=== PATIENT | male | born 1960 | race Hispanic/Latino ===

== ENCOUNTER 2018-07-15 21:40 | Inpatient (IN) | payer OTHER ==
[2018-07-15] MEDS ORDERED: Ondansetron PF 4 MG/2 ML Vial ONE (21:59)
[2018-07-15] MEDS ORDERED: Morphine 4 MG/ML VIAL ONE (21:59)
[2018-07-15] MEDS ORDERED: Ondansetron ODT 4 MG TAB SL PRN (22:58)
[2018-07-15] MEDS ORDERED: Ondansetron PF 4 MG/2 ML Vial IVP PRN (22:58)
[2018-07-15] MEDS ORDERED: Morphine 4 MG/ML VIAL SLOW IVP PRN (22:58)
[2018-07-15] MEDS: Sodium Chloride 0.9% 1,000 ML IV SCH (23:00)
[2018-07-15] MEDS ORDERED: Acetaminophen 650 MG Suppository PR PRN (23:09)
[2018-07-15] MEDS ORDERED: Morphine 2 MG/ML SYRINGE SLOW IVP PRN (23:11)
[2018-07-15 23:15] VITALS: BMI 47.3
[2018-07-16] MEDS ORDERED: Acetaminophen 650 MG in Premix Bag 1 BAG IVPB SCH (00:45)
[2018-07-16] MEDS ORDERED: Dextrose 5% in Water 1,000 ML IV PRN (01:06)
[2018-07-16] MEDS ORDERED: Dextrose 50% Abboject 50 ML SYRINGE SLOW IVP PRN (01:06)
[2018-07-16] MEDS ORDERED: HumaLOG 300 UNITS/3 ML VIAL SC PRN (01:06)
--- NOTE | 2018-07-16 03:35 | HP ---
CODE STATUS: Full code. TIME OF EVALUATION: 10:30 p.m. CHIEF COMPLAINT: Abdominal pain. HISTORY OF PRESENT ILLNESS: A 57 years old male patient transferred from [place]. The patient came to the hospital after having abdominal pain associated with nausea and then abdominal distention. The pain was severe with no clear triggers, no alleviating factors, was a cramp like pain. The symptoms started around 9:00 a.m. The symptoms have been gradually worsened. The patient was placed on NG tubes and given some pain medication. CT abdomen showed some small bowel obstruction. We will place the patient on medical treatment with intermittent low-pressure wall suction. We will monitor him. We will do KUB in the morning. If not improving, might need a surgery to help us with outpatient. REVIEW OF SYSTEMS: CONSTITUTIONAL: No fever, chills or generalized weakness. RESPIRATORY: No cough, sputum, no shortness of breath. CARDIOVASCULAR: No chest pain or palpitations. GASTROINTESTINAL: The patient had nausea, vomiting, abdominal pain and abdominal distention. 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 GENITOURINARY: No burning on urination. EXTREMITIES: No leg swelling. All other systems were reviewed and negative except for the findings mentioned above. PAST MEDICAL HISTORY: The patient has a history of diabetes type 2, hypertension, high cholesterol, colon cancer. PAST SURGICAL HISTORY: Colectomy in 2013. PSYCHIATRIC HISTORY: No previous psych history. SOCIAL HISTORY: The patient drinks everyday, more than 10 drinks per day. No drug use. No smoking history. FAMILY HISTORY: Mother with diabetes. Father unknown. KNOWN ALLERGIES: No known drug allergies. REPORTED MEDICATIONS: 1. Metformin. 2. Glimepiride. 3. Lisinopril. 4. Amlodipine. 5. Oseni. 6. Lovastatin. PHYSICAL EXAMINATION: VITAL SIGNS: On presentation, blood pressure 177/107 with heart rate 77, respiratory rate was 16, temperature 98.2, pain was 8/10, oxygen saturation was 98% on room air. GENERAL APPEARANCE: The patient is alert, oriented, not in acute distress. HEENT: Eyes normal conjunctivae. Moist oral mucosa. Anicteric. No JVD. RESPIRATORY: Bilateral air entry. No rales. No wheezes. Symmetric expansion. CARDIOVASCULAR: Normal rate, regular rhythm. No murmurs. No gallop. No edema. ABDOMEN: Soft, distended, tender. Normal bowel sounds. MUSCULOSKELETAL: Baseline range of motion and strength. No tenderness. SKIN : Warm, intact. No pallor. No rash. No redness. Peripheral pulses are present. Capillary refill seems to be intact. NEUROLOGIC: No evidence of any new focal weakness. Cranial nerves seems to be intact. PSYCHIATRIC: The patient has good mood. No anxiety. Optimal judgment. IMAGING: Abdomen and pelvis CT, the patient had small bowel obstruction, which is probably secondary to adhesions in the small bowel at the level of the anterior abdominal wall. There is a small fat containing periumbilical hernia as well as small fat containing anterior abdominal wall hernia at the level of the umbilicus. These bowel loops do not extend significantly into the herniation, but appears to be somewhat fixed to the undersurface of the anterior wall, probably from an adhesion and resulted in a significant proximal small-bowel obstruction. Chest x-ray was reviewed. The patient has an NG tube in satisfactory location. LABORATORY DATA: Labs were reviewed. The patient has a white count of 9.4, hemoglobin 14.6, MCV 101, platelet count 162. Chemistry, potassium 3.9, sodium 134, chloride 96, carbon dioxide 23, anion gap is 19, BUN 11. GFR greater than 90, creatinine 0.8. Lactic acid was normal. Calcium 9.8. LFTs mildly elevated with AST of 67, ALT 92, alkaline phosphatase 201, albumin is 4.3. ASSESSMENT AND PLAN: The patient presented to the hospital with following medical problems. 1. Small bowel obstruction, likely secondary to adhesions. We will place the patient on medical treatment. Symptomatic treatment with pain medications, nasogastric tube to remove intraluminal pressure, surgery will be consulted, if patient not improving. We will repeat KUB in the morning and hopefully patient resolve with medical management. 2. Hyponatremia of 134. This is mild, no need for any acute intervention. The patient is receiving hydration already. 3. Uncontrolled diabetes with blood sugar of 232. Reconcile home medications. We will place the patient on sliding scale for optimal control. 4. Uncontrolled hypertension, systolic blood pressure 177, diastolic 107, reconcile home medications. Adjust treatment as needed. 5. Deep venous thrombosis prophylaxis. 6. Hyperlipidemia. Low-cholesterol diet is advised. Reconcile home medications. Job ID: [id number]
[2018-07-16] MEDS: Sodium Chloride 0.9% 1,000 ML IV SCH ×3 (05:32→16:12)
[2018-07-16 06:42] LABS: #Eosinphils 0.1 thou/uL (0.0-0.7); #Lymphocytes 1.7 thou/uL (1.20-3.40); #Monocytes 0.3 thou/uL (0.11-0.59); #Neutrophils 6.9 thou/uL (1.40-6.50); %Basophils 0.2 % (0.0-1.0); %Eosinophils 0.7 % (0.0-10.0); %Lymphocytes 18.5 % (21.0-51.0); %Monocytes 3.7 % (0.0-10.0); Hemoglobin 14.4 g/dL (14.0-18.0); Mean Corpuscular HGB CONC 34.8 g/dL (32.0-36.0); Mean Corpuscular Hemoglobin 35.8 pg (27.0-31.0); Mean Platelet Volume 9.8 fL (7.4-10.4); Platelet Count 160 thou/uL (130-400); RBC Distribution Width 12.7 % (11.5-14.5); Red Blood Cell (RBC) Count 4.01 mill/uL (4.70-6.10)
[2018-07-16 06:57] LABS: Anion Gap 13 mmol/L (10-20); BUN (Urea Nitrogen) 8 mg/dL (8.4-25.7); Calc. Creatinine Clearance 207 mL/min (70-130); Calcium 8.9 mg/dL (7.8-10.44); Carbon Dioxide 26 mmol/L (22-29); Chloride 98 mmol/L (98-107); Estimated GFR-MDRD Greater than 90; Glucose 192 mg/dL (70-105); Potassium 3.8 mmol/L (3.5-5.1); Sodium 133 mmol/L (136-145)
[2018-07-16] MEDS ORDERED: Simvastatin 5 MG TAB PO SCH ×2 (07:30→08:00)
[2018-07-16 07:53] LABS: Phosphorus 3.1 mg/dL (2.3-4.7)
--- NOTE | 2018-07-16 08:03 | RAD ---
XR Abdomen 1 View/KUB HISTORY: Abdominal pain. COMPARISON: Prior day CT examination of the abdomen. FINDINGS: There is persistent dilatation of some of the mid abdominal small bowel loops. Chain type s uture material is seen in the left mid abdomen. The degree of distention appears similar to the prior examination. There is also air within the colon. IMPRESSION: Findings suggestive of a partial small bowel obstruction. Degree of dilatation is similar to the previous CT study.
[2018-07-16] MEDS ORDERED: Enoxaparin Sodium 40 MG/0.4 ML SYRINGE SC SCH (09:00)
[2018-07-16] MEDS ORDERED: Amlodipine 10 MG TAB PO SCH (09:00)
[2018-07-16] MEDS ORDERED: Lisinopril 10 MG TAB PO SCH (09:00)
--- NOTE | 2018-07-16 10:29 | CON ---
DATE OF CONSULTATION: HISTORY OF PRESENT ILLNESS: Julius Ordaz is a 57-year-old male patient, who does maintenance work, lives in [place], presents to the emergency room with onset of central abdominal pain, nausea. He self-induced vomiting to make him feel better. He had a CAT scan of abdomen and pelvis suggesting a bowel obstruction. He had distended stomach and duodenum with a transition zone and distended proximal small bowel. He had an abdominal x-ray confirming an NG tube placement. Since having the NG tube in place, he has put out about 400 mL on the floor. Since being on the floor, he has had 1 large bowel movement and a smaller bowel movement. He states his abdomen feels normal baseline protuberance, and he does not have any pain at this time. He reports he had a similar episode a year ago after eating a taco, and on this occasion episode after eating a taco, his abdomen is periumbilical, supraumbilical, central abdominal pain and not right upper quadrant. ALLERGIES: NONE. HABITS: Tobacco none. Alcohol, none. MEDICATIONS: 1. Mevacor a.m. 2. pioglitazone daily. 3. Glimepiride b.i.d. 4. Lisinopril daily. 5. Norvasc daily. 6. Metformin b.i.d. with meals. PAST SURGICAL HISTORY: The patient had a laparoscopic converted to open right colon resection in 2012, T2, N0, M0. He had a followup colonoscopy in 2013 and again in December 2017 and was told by Dr. Lui to return in 4 years for repeat colonoscopy. PAST MEDICAL HISTORY: Morbid obesity, diabetes, hypertension, elevated cholesterol, lipids, 5 feet 6 inches, 293 pounds, 47 BMI. 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 REVIEW OF SYSTEMS: Ten-point review of systems noncontributory. PHYSICAL EXAMINATION: VITAL SIGNS: Height 5 feet 6 inches, weight 293 pounds, 47 BMI. Morbidly obese. Blood pressure 148/89, heart rate 93, respiratory rate 18. HEAD, EARS, EYES, NOSE, AND THROAT: Unremarkable. LUNGS: Clear to auscultation. CARDIAC: Rhythm. No murmur or gallop. ABDOMEN: Soft. Bowel sounds present. No obvious hernias. Midline incision without obvious hernia defect. Nontender. Good bowel sounds. EXTREMITIES: Unremarkable. LABORATORY DATA: White count 9, hemoglobin 14. Sodium 133, BUN 8, creatinine 0.76. ASSESSMENT AND PLAN: 1. History and exam consistent with a bowel obstruction, although he has greatly improved, and since he has had 2 bowel movements this morning, feels better. I would go ahead and proceed with a small bowel follow through today. Would normally wait till tomorrow, but since he has had bowel movements, we will proceed with small bowel follow-through today and await the results and hopefully we will remove the NG tube and progress his diet. 2. Morbid obesity. 3. Hypertension. 4. Diabetes. 5. History of T2, N0, M0. Laparoscopic converted to open right colectomy with followup colonoscopy in December 2017, normal. Job ID: [id number]
--- NOTE | 2018-07-16 13:06 | RAD ---
Exam: Gastrografin small bowel: HISTORY: Small bowel obstruction Patient was given Gastrografin through the NG tube. 15 minute and 1 hour overhead x-rays were perform ed. There is passage of contrast through nondilated nonobstructing small bowel entering the colon by 1 hour. There appears to be prior right hemicolectomy. IMPRESSION: No evidence for small bowel obstruction. Passage of contrast through the small bowel entering the col on by 1 hour.
[2018-07-16 16:03] VITALS: BP 123/79; TEMP 98.4
[2018-07-16] MEDS ORDERED: metFORMIN 500 MG TAB PO SCH (17:00)
[2018-07-16] MEDS ORDERED: Glimepiride 4 MG TAB PO SCH (17:00)
--- NOTE | 2018-07-16 17:11 | PRG ---
DATE OF SERVICE: 07/16/2018 SUBJECTIVE: Julius Ordaz had a small bowel follow-through, that was normal. There is no evidence of obstruction. He has had many bowel movements. Diet has been ordered. PHYSICAL EXAMINATION: ABDOMEN: Soft, baseline obesity, protuberant. Good bowel sounds. Nontender. ASSESSMENT/PLAN: No evidence of a bowel obstruction. Would resume his diabetic diet and discharge home tonight. He can follow up with me as needed. Job ID: [id number]
[2018-07-17] MEDS ORDERED: [UNRECOGNIZED DRUG - OTHER] PO SCH (09:00)
[2018-07-17] MEDS ORDERED: PIOGLITAZONE PO SCH (09:00)
--- NOTE | 2018-07-17 11:34 | DIS ---
DATE OF ADMISSION: 07/15/2018 DATE OF DISCHARGE: 07/16/2018 DISCHARGE DISPOSITION: Home. FOLLOWUP: 1. Follow up with primary care physician, Dr. Redmond, in 1 week. 2. Follow up with Dr. Erazo in 2 weeks. ALLERGIES: NO KNOWN DRUG ALLERGIES. THE PATIENT WAS SEEN AND EXAMINED ON THE DAY OF DISCHARGE. DENIES ANY NEW COMPLAINTS. NO CHEST PAIN, SHORTNESS OF BREATH, OR PALPITATIONS. THE PATIENT IS TOLERATING REGULAR DIET. DISCHARGE MEDICATIONS: Same as admission medications. No changes were made. BRIEF HOSPITAL COURSE: The patient is a 57-year-old male with colectomy in 2013, presented to [facility] with abdominal discomfort along with nausea. His workup was consistent with small-bowel obstruction. He was managed conservatively with IV fluids, n.p.o., and NG tube. Electrolytes were monitored on a daily basis. He underwent a small-bowel follow-through today after which he started having bowel movements. NG tube was discontinued. He is tolerating regular diet. He has been cleared by General Surgery for discharge. FINAL DIAGNOSES: 1. Small bowel obstruction, resolved. 2. Diabetes mellitus type 2. 3. Hypertension. 4. Hyponatremia. 5. Hyperlipidemia. 6. Morbid obesity with a BMI of 47.4. 7. Hyponatremia. 8. Chronically abnormal LFTs. PLAN: Plan of care was discussed with the patient in detail. He stated understanding. Job ID: [id number]
== END 2018-07-16 17:20 | disposition home or self-care (01) | DRG 389 ==
LOC: ERS 21:40 → SJJU 22:50
PROVIDERS: ADMIT Hospitalist; ATTEND Hospitalist
DX: K56.51 Intestinal adhesions [bands], with partial obstruction (principal); E87.1 Hypo-osmolality and hyponatremia; Z68.42 Body mass index [BMI] 45.0-49.9, adult; E66.01 Morbid (severe) obesity due to excess calories; E11.65 Type 2 diabetes mellitus with hyperglycemia; I10 Essential (primary) hypertension; E78.00 Pure hypercholesterolemia, unspecified; Z79.84 Long term (current) use of oral hypoglycemic drugs; Z79.899 Other long term (current) drug therapy; Z85.038 Personal history of other malignant neoplasm of large intestine
CPT/HCPCS: 36415; 36416; 74018; 74250; 80048; 83735; 84100; 85025; 96374; 96375; J0131; J1650; J2270; J2405

== ENCOUNTER 2022-08-21 13:50 | Outpatient (CLI) | payer BC | END 2022-08-21 13:51 | disposition home or self-care (01) | LOC: ULT 13:50 | PROVIDERS: ATTEND Family Medicine | DX: R60.0 Localized edema (principal) | CPT/HCPCS: 93970 ==